=== PATIENT | female | born 1965 | race Caucasian/White ===

== ENCOUNTER 2018-07-05 13:24 | Day surgery (SDC) | payer OTHER ==
[2018-07-02 13:06] VITALS: BMI 20.1
[2018-07-05] MEDS ORDERED: MIDAZOLAM HCL 2 MG/2 ML SINGLE DOSE VIAL ONE ×2 (15:05→15:22)
--- NOTE | 2018-07-05 15:39 | OP ---
Operative Note - Note: Operative Date: 07/05/18 Pre-Operative Diagnosis: Right renal stone Operation: Right ESWL Findings: 5 mm mid pole Right kidney stone Surgeon: Jordon Serrano Anesthesia: Fractional Estimated Blood Loss (mls): 0
[2018-07-05] MEDS ORDERED: ONDANSETRON 4 MG/2 ML VIAL ONE (16:41)
[2018-07-05] MEDS ORDERED: ONDANSETRON 4 MG/2 ML VIAL IVPUSH ONE ×2 (16:42→16:45)
[2018-07-05 17:42] VITALS: BP 125/73; PULSE 73; TEMP 98
--- NOTE | 2018-07-06 09:40 | OP ---
DATE OF OPERATION: 07/05/2018 PREOPERATIVE DIAGNOSIS: Right renal stone. POSTOPERATIVE DIAGNOSIS: Right renal stone. PROCEDURE: Right extracorporeal shockwave lithotripsy. ATTENDING: Edilson Motta MD ANESTHESIA: Fractional. OPERATION: Patient was brought in the operating room, placed in the supine position on the operating room table. Ultrasonography and fluoroscopy were performed. A right mid pole stone measuring 5 mm was identified. Anesthesia was then administered. Shockwave lithotripsy was performed. No complications were noted. The disposition of the patient was to the recovery room. EDILSON MOTTA M.D. [id number]
== END 2018-07-05 18:05 | disposition home or self-care (01) ==
LOC: JASU-SURG 13:24
PROVIDERS: ATTEND Urology
PROC: 0TF3XZZ Fragmentation in Right Kidney Pelvis, External Approach (ICD-10-PCS; principal; 2018-07-05 15:30)
DX: N20.0 Calculus of kidney (principal)

== ENCOUNTER 2019-02-06 10:40 | Emergency (ER) | payer OTHER ==
[2019-02-06 10:47] VITALS: BMI 20.7
[2019-02-06] MEDS ORDERED: ONDANSETRON 4 MG/2 ML VIAL IVPUSH ONE (11:16)
[2019-02-06] MEDS ORDERED: morphine CARPU-JECT 2 MG/1 ML DISP.SYRIN IVPUSH ONE (11:16)
[2019-02-06] MEDS ORDERED: SODIUM CHLORIDE 1,000 ML IV STA (11:16)
[2019-02-06] MEDS ORDERED: ONDANSETRON 4 MG/2 ML VIAL ONE (11:43)
[2019-02-06] MEDS ORDERED: MORPHINE SULFATE 2 MG/ML VIAL ONE (11:43)
[2019-02-06 11:47] LABS: BASO % 0.7 % (0-2.0); EOS % 0.5 % (0-4.5); HEMATOCRIT 42.2 % (32.4-45.2); HEMOGLOBIN 14.2 GM/dL (10.7-15.3); MCH 30.2 pg (25.7-33.7); MCHC 33.7 g/dl (32.0-36.0); MEAN CELL VOLUME 89.6 fl (80-96); MONO % 7.7 % (3.8-10.2); NEUT % 65.1 % (42.8-82.8); PLATELET COUNT 222 K/MM3 (134-434); RBC 4.71 M/mm3 (3.60-5.2); RDW 13.7 % (11.6-15.6); WHITE BLOOD COUNT 6.8 K/mm3 (4.0-10.0)
[2019-02-06 11:55] LABS: URINE APPEARANCE CLEAR; URINE BILIRUBIN NEGATIVE (NEGATIVE); URINE COLOR YELLOW; URINE GLUCOSE (UA) NEGATIVE (NEGATIVE); URINE KETONE NEGATIVE (NEGATIVE); URINE LEUK ESTERASE NEGATIVE (NEGATIVE); URINE NITRITE NEGATIVE (NEGATIVE); URINE PROTEIN NEGATIVE (NEGATIVE); URINE UROBILINOGEN 0.2 mg/dL (0.2-1.0)
[2019-02-06 12:05] LABS: MAGNESIUM 2.3 mg/dL (1.8-2.4)
--- NOTE | 2019-02-06 12:05 | PDOC ---
History of Present Illness - General Chief Complaint: Pain, Acute Stated Complaint: RT SIDE PAIN / NAUSEA Time Seen by Provider: 02/06/19 11:09 History Source: Patient Exam Limitations: No Limitations - History of Present Illness Travel History: No Initial Comments: 02/06/19 12:53 53 y/o female presents to ED with rt flank pain and nausea x 2 days. pt denies fever, diarrhea, and constipation. Pt does c/o urinary frequency without hematuria. Pt states with hx of renal colic with lithotripsy done in 06/2018. Timing/Duration: reports: getting worse Quality: reports: moderate, sharpness Abdominal Pain Onset Location: reports: flank Pain Radiation: reports: back Activities at Onset: reports: none Aggravating Factors: improves with: None Alleviating Factors: improves with: None Past History - Travel Traveled outside of the country in the last 30 days: No Close contact w/someone who was outside of country & ill: No - Past Medical History Allergies/Adverse Reactions: Allergies Allergy/AdvReac Type Severity Reaction Status Date / Time Penicillins Allergy Intermediate Rash Verified 02/06/19 10:46 ibuprofen Allergy "HIVES" Verified 02/06/19 10:46 Home Medications: Ambulatory Orders NK [No Known Home Medication] 02/06/19 Asthma: Yes (SEASONAL) COPD: No Disorders: Yes (STONES) - Surgical History Abdominal Surgery: Yes (OVARY REMOVED) - Reproductive History (#): 5 Para: 5 - Suicide/Smoking/Psychosocial Hx Smoking History: Never smoked Have you smoked in the past 12 months: No Information on smoking cessation initiated: No Hx Alcohol Use: No Drug/Substance Use Hx: No Substance Use Type: None Hx Substance Use Treatment: No Patient Lives Alone: No Lives with/in: spouse/SO Review of Systems - Review of Systems Able to Perform ROS?: Yes Constitutional: No: Symptoms Reported ABD/GI: Yes: Nausea, Abdominal cramping : Yes: Frequency, Flank Pain. No: Symptoms Reported Musculoskeletal: Yes: Back Pain Integumentary: No: Symptoms Reported Neurological: No: Symptoms reported *Physical Exam - Vital Signs Last Vital Signs Temp Pulse Resp BP Pulse Ox 97.6 F 89 18 118/78 96 02/06/19 11:14 02/06/19 11:14 02/06/19 11:14 02/06/19 11:14 02/06/19 11:14 - Physical Exam General Appearance: Yes: Nourished, Appropriately Dressed. No: Apparent Distress HEENT: negative: Pale Conjunctivae Respiratory/Chest: positive: Lungs Clear, Normal Breath Sounds. negative: Respiratory Distress, Accessory Muscle Use Cardiovascular: positive: Regular Rhythm, Regular Rate. negative: Murmur Gastrointestinal/Abdominal: positive: Soft, Tenderness (rt flank) Musculoskeletal: positive: CVA Tenderness (R) Extremity: positive: Normal Inspection Integumentary: positive: Normal Color, Warm, Moist Neurologic: positive: Motor Strength 5/5 (ambulatory) ED Treatment Course - LABORATORY CBC & Chemistry Diagram: 02/06/19 11:35 02/06/19 11:35 - ADDITIONAL ORDERS Additional order review: Laboratory Results 02/06/19 11:35 WBC 6.8 RBC 4.71 Hgb 14.2 Hct 42.2 MCV 89.6 MCH 30.2 MCHC 33.7 RDW 13.7 Plt Count 222 MPV 10.0 Absolute Neuts (auto) 4.4 Neutrophils % 65.1 Lymphocytes % 26.0 D Monocytes % 7.7 Eosinophils % 0.5 Basophils % 0.7 Nucleated RBC % 0 02/06/19 11:35 RBC 4.71 MCV 89.6 MCHC 33.7 RDW 13.7 MPV 10.0 Neutrophils % 65.1 Lymphocytes % 26.0 D Monocytes % 7.7 Eosinophils % 0.5 Basophils % 0.7 - RADIOLOGY Radiology Studies Ordered: Category Date Time Status KIDNEY / RENAL US [US] Stat Ultrasound 02/06/19 11:16 Ordered - Medications Given in the ED: ED Medications Discontinued Medications Generic Name Dose Route Start Last Admin Trade Name Lauren PRN Reason Stop Dose Admin Morphine Sulfate 2 mg 02/06/19 11:16 02/06/19 11:45 Morphine Injection - IVPUSH 02/06/19 11:17 2 mg ONCE ONE Administration Ondansetron HCl 4 mg 02/06/19 11:16 02/06/19 11:48 Zofran Injection IVPUSH 02/06/19 11:17 4 mg ONCE ONE Administration Medical Decision Making - Medical Decision Making 02/06/19 11:56 Chief complaint: Right flank pain with urinary frequency. Patient with history of renal colic and states similar symptoms. Exam. Patient right CVA and right flank tenderness with mild right lower quadrant tenderness. Plan: Labs, urine and ultrasound ordered 02/06/19 13:03 Laboratory Tests 02/06/19 02/06/19 02/06/19 11:35 11:35 11:35 WBC 6.8 Hgb 14.2 Hct 42.2 Neutrophils % 65.1 Sodium 140 Potassium 4.5 Chloride 106 Carbon Dioxide 30 Anion Gap 5 L BUN 14.0 Creatinine 0.7 Magnesium 2.3 Total Protein 8.1 Albumin 4.0 Lipase 136 Urine Bilirubin Ur Leukocyte Esterase 02/06/19 11:35 WBC Hgb Hct Neutrophils % Sodium Potassium Chloride Carbon Dioxide Anion Gap BUN Creatinine Magnesium Total Protein Albumin Lipase Urine Bilirubin Negative Ur Leukocyte Esterase Negative 02/06/19 13:04 Ultrasound shows no hydronephrosis. Kidneys appear unremarkable. There is no definite calculus or mass lesion identified with and limitations sonographic. There is no obvious perirenal fluid collection. 02/06/19 13:06 Pt states is feeling better. Patient states symptoms have repeat resolved. Pt urinated 2 in the ER. Patient given strict instructions if Symptoms of nausea , worsening pain or fever. If Noted, return to return to emergency room immediately. 02/06/19 13:08 *DC/Admit/Observation/Transfer Diagnosis at time of Disposition: Flank pain - Discharge Dispostion Disposition: HOME Condition at time of disposition: Improved - Referrals - Patient Instructions Printed Discharge Instructions: DI for Flank Pain Additional Instructions: Your lab work and ultrasound were negative. I recommend taking Motrin 400 mg or Tylenol 975 mg for pain. If symptoms return or worsen please go directly to the nearest emergency room. Otherwise follow-up with your primary care physician. - Post Discharge Activity
[2019-02-06 12:11] LABS: BILIRUBIN,TOTAL 0.2 mg/dL (0.2-1); CALCIUM 9.1 mg/dL (8.5-10.1); CREATININE 0.7 mg/dL (0.55-1.3); POTASSIUM 4.5 mmol/L (3.5-5.1); TOT PROT 8.1 g/dl (6.4-8.2)
[2019-02-06 13:23] VITALS: BP 112/81; PULSE 75; TEMP 97.5
== END 2019-02-06 13:24 | disposition home or self-care (01) ==
LOC: JER 10:40
PROC: 3E0337Z Introduction of Electrolytic and Water Balance Substance into Peripheral Vein, Percutaneous Approach (ICD-10-PCS; principal; 2019-02-06)
PROC: 3E033NZ Introduction of Analgesics, Hypnotics, Sedatives into Peripheral Vein, Percutaneous Approach (ICD-10-PCS; 2019-02-06)
PROC: 3E033GC Introduction of Other Therapeutic Substance into Peripheral Vein, Percutaneous Approach (ICD-10-PCS; 2019-02-06)
DX: R10.31 Right lower quadrant pain (principal); Z87.442 Personal history of urinary calculi
CPT/HCPCS: 36415; 76775-TC; 80053; 81003; 83690; 83735; 85025; 87086; 96361; 96374; 96375; 99284-25; J7030